=== PATIENT | female | born 1965 | race African-American/Black ===

== ENCOUNTER 2017-06-22 19:02 | Emergency (ER) | payer BC ==
[2017-06-22 19:06] VITALS: TEMP 98.6; BMI 32.2
--- NOTE | 2017-06-22 19:37 | PDOC ---
History of Present Illness - General Chief Complaint: Edema Stated Complaint: EDEMA Time Seen by Provider: 06/22/17 19:34 - History of Present Illness Initial Comments: 06/22/17 19:37 52 yo F with h/o HTN, and RA who presents with RLE pain and swelling. Patient with progressive RLE popliteal and calf pain and swelling (03/31), aggravated with walking. Denies color or skin change, warmth, sensory change, of involved ext. Pain control attempted with OTC Beng[place].Denies CP, palpitations, cough, SOB , hemoptysis, F/C, lightheadedness. Denies h/o CHF, DVT/PE, malignancy,or hypercoagulable disorder. Denies recent trauma, surgery, immobilization, or prolonged trips within past 6 months. Denies tobacco use. Past History - Past Medical History Allergies/Adverse Reactions: Allergies Allergy/AdvReac Type Severity Reaction Status Date / Time Penicillins Allergy Mild Rash Verified 06/22/17 19:06 Home Medications: Ambulatory Orders Amlodipine Besylate [Norvasc -] 5 mg PO DAILY 06/22/17 Ibuprofen [Motrin -] 600 mg PO TID PRN 06/22/17 COPD: No HTN: Yes - Suicide/Smoking/Psychosocial Hx Smoking History: Never smoked Hx Alcohol Use: No Drug/Substance Use Hx: No Substance Use Type: None Review of Systems - Review of Systems Comments:: 06/22/17 19:36 GENERAL/CONSTITUTIONAL: No fever or chills. No weakness. HEAD, EYES, EARS, NOSE AND THROAT: No change in vision. No ear pain or discharge. No sore throat.- CARDIOVASCULAR: No chest pain or shortness of breath RESPIRATORY: No cough, wheezing, or hemoptysis. GASTROINTESTINAL: No nausea, vomiting, diarrhea or constipation. GENITOURINARY: No dysuria, frequency, or change in urination. MUSCULOSKELETAL:+ RLE swelling and pain. No neck or back pain. SKIN: No rash NEUROLOGIC: No headache, vertigo, loss of consciousness, or change in strength/ sensation. ENDOCRINE: No increased thirst. No abnormal weight change HEMATOLOGIC/LYMPHATIC: No anemia, easy bleeding, or history of blood clots. ALLERGIC/IMMUNOLOGIC: No hives or skin allergy. *Physical Exam - Vital Signs Last Vital Signs Temp Pulse Resp BP Pulse Ox 98.6 F 80 16 153/84 98 06/22/17 19:04 06/22/17 19:04 06/22/17 19:04 06/22/17 19:04 06/22/17 19:04 - Physical Exam Comments: 06/22/17 19:36 GENERAL: Awake, alert, and fully oriented, in no acute distress HEAD: No signs of trauma, normocephalic, atraumatic EYES: PERRLA, EOMI, sclera anicteric, conjunctiva clear ENT: Hearing grossly normal, nares patent, oropharynx clear without exudates. Moist mucosa NECK: Normal ROM, no JVD, or masses LUNGS: No distress, speaks full sentences, clear to auscultation bilaterally HEART: Regular rate and rhythm, normal S1 and S2, no murmurs, rubs or gallops, peripheral pulses normal and equal bilaterally. EXTREMITIES : + RLE circumferential, nonpitting swelling >3 cm compared to left calf muscle. + Popliteal and calf ttp. Absent blue or white color change. Absent warmth, erythema, or induration overlying skin. + Right sided effusion in popliteal fossa.Palpable and symmetric perpheral PT pulses. Normal range of motion, No clubbing or cyanosis. NEUROLOGICAL: Cranial nerves II through XII grossly intact. Normal speech, normal gait, no focal sensorimotor deficits SKIN: Warm, Dry, normal turgor, no rashes or lesions noted. ]\ ED Treatment Course - RADIOLOGY Radiograph Interpretation: 06/22/17 21:08 Francine Soto Name: [facility] DEPARTMENT OF RADIOLOGY Phys: Darion Mabry RESIDENT : 1965 Age: 52 Sex: F [facility] Acct: [id number] Loc: [address] Exam Date: 06/22/17 Status: [facility] [place] [id number] Unit Number: [id number] EXAM#: TYPE/EXAM: RESULT: [id number] US/DUPLEX VASCUL US-1 LEG Indication: Right lower extremity pain and swelling. Technique: Real-time grayscale, color Doppler and spectral Doppler sonogram of the deep veins in the right and left lower extremities was performed by the technologist utilizing compression and augmentation maneuvers. The common femoral vein including its junction with the greater saphenous vein, the femoral, profunda femoral, popliteal and posterior tibial veins were interrogated in the right lower extremity. Images are submitted for review. Comparison: None available. Findings: There is no evidence evidence of deep vein thrombosis in the right lower extremity. The interrogated veins, as listed above, demonstrate compressibility and flow related Doppler signal. There is a 5.1 x 1.2 x 2.3 cm hypoechoic lesion in the right popliteal fossa, all likely a Bai's cyst. Impression: No evidence of right lower extremity deep vein thrombosis, as above. A 5.1 x 2.3 cm lesion in the right popliteal fossa, likely a Bai's cyst Reported By: Chrissy Hannon DO 06/22/172057 Darion Mabry Technologist: Ewa Burns Transcribed Date/Time : 06/22/172057 Tetryl Wringer Operator: Chrissy Hannon DO Printed Date/Time: By: Medical Decision Making - Medical Decision Making 06/22/17 20:11 52 yo F with h/o HTN, and RA who presents with with progressive RLE popliteal and calf pain and swelling (03/31), aggravated with walking. Denies color or skin change, warmth, sensory change, of involved ext. Denies CP, palpitations, cough, SOB, hemoptysis, F/C, lightheadedness. Denies h/o CHF, DVT/PE, malignancy ,or hypercoagulable disorder. Denies recent trauma, surgery, immobilization, or prolonged trips within past 6 months. Denies tobacco use. Hemodynamically stable with + RLE circumferential, nonpitting swelling >3 cm ( vs. left leg). + R sided popliteal and calf ttp. Absent blue or white color change. Absent warmth , erythema, or induration overlying skin. + Right sided palpable effusion in popliteal fossa. Palpable and symmetric peripheral PT pulses. Normal range of motion, No clubbing or cyanosis. Patient presentation concerning for RLE DVT. Mod- High risk weils criteria. Absent signs of massive iliofemoral occlusion, with no evidence phlegmasia. Absent physical exam or history findings to suggest PE. No evidence of overlying cellulitis. Posterior knee effusion in setting of RA most likely popliteal/bai cyst. Will obtain ultrasound imaging. ED Course: RLE U/S: 06/22/17 21:08 RLE U/S: No evidence of right lower extremity deep vein thrombosis, as above. A 5.1 x 2.3 cm lesion in the right popliteal fossa, likely a Bai's cyst Right Knee RAD: No acute pathology on preliminary read. 06/22/17 21:13 Patient stable and ready for d/c with return precautions. *DC/Admit/Observation/Transfer Diagnosis at time of Disposition: Bakers cyst Qualifiers: Laterality: right Qualified Code(s): M71.21 - Synovial cyst of popliteal space [Bai], right knee - Discharge Dispostion Disposition: HOME Condition at time of disposition: Stable Admit: No - Referrals Referrals: Jarrett Maurice [Primary Care Provider] - Edward Vazquez MD [Staff Physician] - - Patient Instructions Printed Discharge Instructions: DI for Bai's Cyst Additional Instructions: Please return to the emergency department with any new or worsening symptoms or concerns. Please return to the emergency department with any new or worsening symptoms. Can continue to take NSAIDS/Ibuprofen 600 mg 4 times a day. - Post Discharge Activity - Attestations Physician Attestion: 06/22/17 21:11 I attest to the information provided in this note.
--- NOTE | 2017-06-22 20:58 | PDOC ---
Attending Attestation - HPI HPI: 06/22/17 21:52 The patient is a 52 year old femal with a past medical history of hypertension, and Rhuematoid athritis who presents with RLE pain and swelling. Patient with progressive RLE popliteal and calf pain and swelling (03/31), aggravated with walking. She denies fever, cough, chills, and chest congestion. - Physicial Exam PE: 06/22/17 21:53 GENERAL: Awake, alert, and fully oriented, in no acute distress HEAD: No signs of trauma EYES: PERRLA, EOMI, sclera anicteric, conjunctiva clear ENT: Auricles normal inspection, hearing grossly normal, nares patent, oropharynx clear without exudates. Moist mucosa NECK: Normal ROM, supple, no lymphadenopathy, JVD, or masses LUNGS: Breath sounds equal, clear to auscultation bilaterally. No wheezes, and no crackles HEART: Regular rate and rhythm, normal S1 and S2, no murmurs, rubs or gallops ABDOMEN: Soft, nontender, normoactive bowel sounds. No guarding, no rebound. No masses EXTREMITIES: (+) synovial fluid bulge at anterior aspect of knee, no calf tenderness. Normal range of motion. No clubbing or cyanosis. No cords, erythema , or tenderness NEUROLOGICAL: Cranial nerves II through XII grossly intact. Normal speech, normal gait SKIN: Warm, Dry, normal turgor, no rashes or lesions noted. - Medical Decision Making 06/22/17 21:55 Documentation prepared by Don Schmid, acting as medical education coordinator for Susan Abdi DO. <Don Schmid - Last Filed: 06/22/17 21:52> - Resident Resident Name: Darion Mabry - ED Attending Attestation I have performed the following: I have examined & evaluated the patient, The case was reviewed & discussed with the resident, I agree w/resident's findings & plan, Exceptions are as noted - Medical Decision Making 06/22/17 20:58 I, Dr. Susan Abdi DO, attest that this document has been prepared under my direction and personally reviewed by me in its entirety. I further attest, that it accurately reflects all work, treatment, procedures and medical decision -making performed by me. 06/22/17 22:14 a/p: 52yo female with R posterior knee pain -no hx of trauma soft tissue bulging to posterior knee no leg swelling limited ROM secondary to pain pain since march will check xray and ultrasound dvt vs bakers cyst 06/22/17 22:14 pt with bakers cyst on ultrasound stable for d/c to home xray reviewed, no acute findings knee wrapped with an philip wrap will give ortho followup <Susan Abdi - Last Filed: 06/22/17 22:15>
[2017-06-22] MEDS ORDERED: IBUPROFEN 600 MG TABLET (FP) PO ONE ×2 (21:54→22:02)
[2017-06-22 22:24] VITALS: BP 132/68; PULSE 78
== END 2017-06-22 22:29 | disposition home or self-care (01) ==
LOC: JERFT 19:02
DX: M71.21 Synovial cyst of popliteal space [Baker], right knee (principal); I10 Essential (primary) hypertension; M62.82 Rhabdomyolysis
CPT/HCPCS: 73560-TC-RT-FY; 93971-TC; 99282-25

== ENCOUNTER 2018-03-09 14:18 | Emergency (ER) | payer BC ==
--- NOTE | 2018-03-09 14:50 | PDOC ---
Rapid Medical Evaluation Time Seen by Provider: 03/09/18 14:46 Medical Evaluation: Allergies Allergy/AdvReac Type Severity Reaction Status Date / Time Penicillins Allergy Mild Rash Verified 06/22/17 19:06 03/09/18 14:47 Pt presents to the ED for L rib pain since Monday night. Pt states on Monday she bent over to pick something up and felt a spasm. States that the pain is worse with movement and deep breaths. Exam: RRR, CTAB, TTP along the L 8th rib Orders: Nothing Pt to proceed to ED for further evaluation. Discharge Disposition - Diagnosis Rib pain on left side - Referrals - Patient Instructions - Post Discharge Activity
[2018-03-09 14:52] VITALS: BP 156/86; PULSE 81; TEMP 97.7; BMI 32.2
[2018-03-09] MEDS ORDERED: KETOROLAC TROMETHAMINE 60 MG/2 ML VIAL IM ONE (15:41)
[2018-03-09] MEDS ORDERED: KETOROLAC TROMETHAMINE 60 MG/2 ML VIAL ONE (15:48)
--- NOTE | 2018-03-09 15:48 | PDOC ---
History of Present Illness - General Stated Complaint: RT SIDE PAIN Time Seen by Provider: 03/09/18 14:46 History Source: Patient Exam Limitations: No Limitations - History of Present Illness Initial Comments: Patient came with complaints of LEFT lower thorax and upper back 2 days. States did some heavy lifting a few days ago and is used ibuprofen with minimal resolved. Denies numbness or tingling to hands or feet, denies fever or chest pain/palpitations. Thinks is a muscle strain. 03/10/18 17:43 Occurred: reports: yesterday, last week Severity: reports: mild, moderate Pain Location: reports: back, chest Modifying Factors: improves with: None Loss of Consciousness: no loss of consciousness Associated Symptoms (Fall): denies symptoms Past History - Travel Traveled outside of the country in the last 30 days: No Close contact w/someone who was outside of country & ill: No - Past Medical History Allergies/Adverse Reactions: Allergies Allergy/AdvReac Type Severity Reaction Status Date / Time Penicillins Allergy Mild Rash Verified 03/09/18 14:47 Home Medications: Ambulatory Orders Amlodipine Besylate [Norvasc -] 5 mg PO DAILY 06/22/17 Ibuprofen [Motrin -] 600 mg PO TID PRN 06/22/17 Cyclobenzaprine HCl 10 mg PO Q8H PRN #14 tablet 03/09/18 Diclofenac Sodium [Voltaren] 100 gm TP DAILY PRN 03/09/18 Naproxen [Naprosyn -] 500 mg PO BID #30 tablet 03/09/18 Simvastatin [Zocor -] 20 mg PO HS 03/09/18 metFORMIN HCL [Metformin HCl] 500 mg PO DAILY 03/09/18 COPD: No HTN: Yes - Suicide/Smoking/Psychosocial Hx Smoking History: Never smoked Hx Alcohol Use: No Drug/Substance Use Hx: No Substance Use Type: None Review of Systems - Review of Systems Able to Perform ROS?: Yes Is the patient limited Ghanaian proficient: Yes Constitutional: Yes: Symptoms Reported, See HPI. No: Fever, Loss of Appetite, Malaise HEENTM: Yes: See HPI. No: Symptoms Reported, Throat Swelling Respiratory: Yes: See HPI. No: Symptoms reported Musculoskeletal: Yes: Symptoms Reported, See HPI, Back Pain, Muscle Pain Integumentary: Yes: See HPI. No: Symptoms Reported Neurological: Yes: Symptoms reported All Other Systems: Reviewed and Negative *Physical Exam - Vital Signs Last Vital Signs Temp Pulse Resp BP Pulse Ox 97.7 F 81 18 156/86 99 03/09/18 14:50 03/09/18 14:50 03/09/18 14:50 03/09/18 14:50 03/09/18 14:50 - Physical Exam General Appearance: Yes: Nourished, Appropriately Dressed HEENT: positive: KING, TMs Normal Neck: positive: Supple. negative: Tender Respiratory/Chest: positive: Lungs Clear, Normal Breath Sounds Gastrointestinal/Abdominal: positive: Soft Musculoskeletal: positive: Muscle Spasm (tenderness and spasm palpated with movement at the left lower thorax and upper waistline.. Has no C-spine tenderness, no rashes/ lesions) Extremity: positive: Normal Capillary Refill, Normal Range of Motion Integumentary: positive: Normal Color, Dry, Warm. negative: Rash Progress Note - Progress Note Progress Note: Back spasm, we'll treat with NSAIDs and cyclobenzaprine *DC/Admit/Observation/Transfer Diagnosis at time of Disposition: Low back pain Qualifiers: Chronicity: acute Back pain laterality: left Sciatica presence: without sciatica Qualified Code(s): M54.5 - Low back pain - Discharge Dispostion Disposition: HOME Condition at time of disposition: Stable Decision to Admit order: No - Prescriptions Prescriptions: Cyclobenzaprine HCl 10 mg PO Q8H PRN #14 tablet PRN Reason: spasm Naproxen [Naprosyn -] 500 mg PO BID #30 tablet - Referrals Referrals: Jarrett Maurice [Primary Care Provider] - - Patient Instructions Printed Discharge Instructions: DI for Muscle Strain Additional Instructions: Rest, no heavy lifting or exercise until pain is resolved Hot soaks to neck and low back as often as possible/hot showers or Jacuzzis No massage or therapy until spasm is gone Continue Naprosyn 500 mg tablet, 1 tablet every 12 hours for the next 3 days then as needed for pain and swelling Cyclobenzaprine 1-10mg every 8 hours as needed for spasm If not significant improvement within 24 hours with medication and rest regime, followup with private physician for change in medications and /or therapy. - Post Discharge Activity Forms/Work/School Notes: Back to Work
== END 2018-03-09 16:09 | disposition home or self-care (01) ==
LOC: JERFT 14:18
PROC: 3E0233Z Introduction of Anti-inflammatory into Muscle, Percutaneous Approach (ICD-10-PCS; principal; 2018-03-09)
DX: R07.81 Pleurodynia (principal); I10 Essential (primary) hypertension
CPT/HCPCS: 99281-25

== ENCOUNTER 2018-11-02 18:49 | Emergency (ER) | payer BC ==
[2018-11-02 19:05] VITALS: BP 145/76; PULSE 96; TEMP 102; BMI 33.0
--- NOTE | 2018-11-02 19:06 | PDOC ---
Rapid Medical Evaluation Time Seen by Provider: 11/02/18 18:51 Medical Evaluation: Allergies Allergy/AdvReac Type Severity Reaction Status Date / Time Penicillins Allergy Mild Rash Verified 03/09/18 14:47 11/02/18 19:02 I have performed a brief in-person evaluation of this patient. The patient presents with a chief complaint of: Subjective fever w/ sore throat , BEDOLLA and dizziness x 5 days. H/o borderline DM, HTN, HLD but state she was taken of all meds several years ago Pertinent physical exam findings:T 102F, well cam and in NAD I have ordered the following:nothing The patient will proceed to the ED for further evaluation. Discharge Disposition - Diagnosis Fever Qualifiers: Fever type: unspecified Qualified Code(s): R50.9 - Fever, unspecified - Referrals - Patient Instructions - Post Discharge Activity
--- NOTE | 2018-11-02 19:48 | PDOC ---
History of Present Illness - General Chief Complaint: Respiratory Stated Complaint: FEVER/HEADACHE Time Seen by Provider: 11/02/18 18:51 History Source: Patient Exam Limitations: No Limitations - History of Present Illness Initial Comments: 11/02/18 19:57 Chief complaint: Fever and sore throat Patient is a 53-year-old female with no significant medical problems who states she's been sick with fever since Monday. States she's had some cough but not really coughing today, complaining of sore throat. Patient is able to eat and drink. Patient took one Advil at a time. Patient appears well. GENERAL/CONSTITUTIONAL: No fever, weakness. dizziness HEAD, EYES, EARS, NOSE AND THROAT: No change in vision. No ear pain or discharge. +sore throat. CARDIOVASCULAR: No chest pain RESPIRATORY: No shortness of breath, +cough GASTROINTESTINAL: No pain, nausea, vomiting, diarrhea or constipation GENITOURINARY: No dysuria MUSCULOSKELETAL: No neck or back pain SKIN: No rash NEUROLOGIC: No headache, vertigo, loss of consciousness, or loss of sensation. GENERAL: The patient is awake, alert, and fully oriented, in no acute distress. HEAD: Normal with no signs of trauma. EYES: Pupils equal, round and reactive to light, sclera anicteric, conjunctiva clear. ENT: pharynx: minimal erythema, no exudate, uvula midline NECK: supple CHEST: clear, nontender, rr ABD: soft, nontender BACK: no tenderness or signs of injury EXTREMITIES: Normal range of motion, no edema. NEUROLOGICAL: Normal speech, normal gait. SKIN: Warm, Dry Past History - Past Medical History Allergies/Adverse Reactions: Allergies Allergy/AdvReac Type Severity Reaction Status Date / Time Penicillins Allergy Mild Rash Verified 11/02/18 19:03 Home Medications: Ambulatory Orders Azithromycin [Zithromax -] 250 mg PO UTDICT #6 tab 11/02/18 COPD: No HTN: Yes - Suicide/Smoking/Psychosocial Hx Smoking History: Never smoked Hx Alcohol Use: No Drug/Substance Use Hx: No Substance Use Type: None *Physical Exam - Vital Signs Last Vital Signs Temp Pulse Resp BP Pulse Ox 102 F H 96 H 22 H 145/76 98 11/02/18 19:04 11/02/18 19:04 11/02/18 19:04 11/02/18 19:04 11/02/18 19:04 Medical Decision Making - Medical Decision Making 11/02/18 19:59 Healthy 53-year-old female with fever since Monday on and off, mostly at night, somewhat of a cough, but is not present today, worsening sore throat. Able to drink, appears well. Patient will get Motrin, strep, no indication for chest x- ray 11/02/18 20:30 Strep negative but given symptoms, an ALLERGY to penicillin, will give Z-Marquis to cover all respiratory bacterial issues. Patient will follow-up with her doctor on Monday, she has no shortness of breath and does not appeal acutely ill, 11/02/18 20:31 fs 89 *DC/Admit/Observation/Transfer Diagnosis at time of Disposition: Fever Qualifiers: Fever type: unspecified Qualified Code(s): R50.9 - Fever, unspecified Pharyngitis Qualifiers: Pharyngitis/tonsillitis etiology: unspecified etiology Qualified Code(s): J02.9 - Acute pharyngitis, unspecified - Discharge Dispostion Disposition: HOME Condition at time of disposition: Stable Decision to Admit order: No - Prescriptions Prescriptions: Azithromycin [Zithromax -] 250 mg PO UTDICT #6 tab - Referrals - Patient Instructions Additional Instructions: Drink 2-3 L of water daily Take Tylenol 650 mg every 4 hours or Motrin 600 mg every 6 hours for fever and pain Z-Marquis until finished as directed Return to the nearest ER if short of breath, unable to swallow or feeling sicker Followup with your doctor in one to 2 days - Post Discharge Activity Forms/Work/School Notes: Back to Work
[2018-11-02] MEDS ORDERED: IBUPROFEN 600 MG TABLET (FP) PO ONE ×2 (19:56→19:57)
== END 2018-11-02 20:43 | disposition home or self-care (01) ==
LOC: JERFT 18:49
DX: J06.9 Acute upper respiratory infection, unspecified (principal); I10 Essential (primary) hypertension; E11.9 Type 2 diabetes mellitus without complications
CPT/HCPCS: 82962; 87070; 87880; 99281-25

== ENCOUNTER 2022-02-25 07:28 | Day surgery (SDC) | payer BC, OTHER ==
[2022-02-21 14:05] VITALS: BMI 34.0
[2022-02-25] MEDS ORDERED: EPINEPHrine 1:1,000 1,000 MCG/ML ML ONE (08:46)
[2022-02-25] MEDS ORDERED: BUPIVACAINE HCL/PF 2.5 MG/ML - 30 ML VIAL IJ ONE (08:47)
[2022-02-25] MEDS ORDERED: PROPOFOL 20 ML ONE ×2 (09:04→09:35)
[2022-02-25] MEDS ORDERED: ceFAZolin SODIUM 1 GM VIAL ONE (09:28)
[2022-02-25] MEDS ORDERED: SUCCINYLCHOLINE CHLORIDE 200 MG/10 ML SYRINGE ONE (09:35)
[2022-02-25] MEDS ORDERED: ONDANSETRON 4 MG/2 ML VIAL ONE (09:50)
[2022-02-25] MEDS ORDERED: DEXAMETHASONE SOD PHOSPHATE 4 MG/1 ML VIAL ONE (09:50)
[2022-02-25] MEDS ORDERED: ACETAMINOPHEN 325 MG TABLET (FP) PO PRN (11:00)
[2022-02-25] MEDS ORDERED: LACTATED RINGERS SOLUTION 1,000 ML IV SCH (11:00)
[2022-02-25] MEDS ORDERED: oxyCODONE HCL 5 MG TABLET PO PRN (11:00)
[2022-02-25] MEDS ORDERED: ONDANSETRON 4 MG/2 ML VIAL IVPUSH PRN (11:00)
[2022-02-25 11:42] VITALS: RESP 16
[2022-02-25] MEDS ORDERED: oxyCODONE HCL 5 MG TABLET ONE (11:55)
[2022-02-25 12:32] VITALS: TEMP 97.6
[2022-02-25 14:20] VITALS: BP 129/62; PULSE 76
== END 2022-02-25 13:55 | disposition home or self-care (01) ==
LOC: FASU 07:28
PROVIDERS: ATTEND Orthopaedic Surgery
PROC: 0SBC4ZZ Excision of Right Knee Joint, Percutaneous Endoscopic Approach (ICD-10-PCS; 2022-02-25)
PROC: 0SBC4ZZ Excision of Right Knee Joint, Percutaneous Endoscopic Approach (ICD-10-PCS; principal; 2022-02-25 09:45)
DX: S83.241A Other tear of medial meniscus, current injury, right knee, initial encounter (principal); S83.281A Other tear of lateral meniscus, current injury, right knee, initial encounter; S83.8X1A Sprain of other specified parts of right knee, initial encounter; M65.861 Other synovitis and tenosynovitis, right lower leg; X58.XXXA Exposure to other specified factors, initial encounter; Y93.9 Activity, unspecified; Y92.9 Unspecified place or not applicable
CPT/HCPCS: 94760

== ENCOUNTER 2023-03-23 07:30 | Day surgery (SDC) | payer OTHER ==
[2023-03-20 12:40] VITALS: BMI 30.8
[2023-03-23] MEDS ORDERED: ACETAMINOPHEN INJECTION 100 ML IVPB ONE (09:16)
[2023-03-23] MEDS ORDERED: MIDAZOLAM HCL 2 MG/2 ML SINGLE DOSE VIAL ONE (09:16)
[2023-03-23] MEDS ORDERED: ROPIVACAINE HCL 0.5% 30ML VIAL ONE (09:16)
[2023-03-23] MEDS ORDERED: ONDANSETRON 4 MG/2 ML VIAL IVPUSH PRN (09:28)
[2023-03-23] MEDS ORDERED: oxyCODONE HCL 5 MG TABLET PO PRN (09:28)
[2023-03-23] MEDS ORDERED: LACTATED RINGERS SOLUTION 1,000 ML IV SCH (09:30)
[2023-03-23] MEDS ORDERED: ceFAZolin SODIUM 1 GM VIAL ONE ×2 (09:38)
[2023-03-23] MEDS ORDERED: PROPOFOL 20 ML ONE (09:39)
[2023-03-23] MEDS ORDERED: oxyCODONE HCL 5 MG TABLET ONE (11:40)
[2023-03-23 11:57] VITALS: RESP 16; TEMP 97.5
[2023-03-23 13:14] VITALS: BP 146/77; PULSE 84
== END 2023-03-23 13:05 | disposition home or self-care (01) ==
LOC: FASU 07:30
PROVIDERS: ATTEND Orthopaedic Surgery
PROC: 0RNK4ZZ Release Left Shoulder Joint, Percutaneous Endoscopic Approach (ICD-10-PCS; 2023-03-23)
PROC: 0RQK4ZZ Repair Left Shoulder Joint, Percutaneous Endoscopic Approach (ICD-10-PCS; 2023-03-23)
PROC: 0LM24ZZ Reattachment of Left Shoulder Tendon, Percutaneous Endoscopic Approach (ICD-10-PCS; principal; 2023-03-23 09:56)
DX: M75.122 Complete rotator cuff tear or rupture of left shoulder, not specified as traumatic (principal); M75.02 Adhesive capsulitis of left shoulder; M75.42 Impingement syndrome of left shoulder; S43.432A Superior glenoid labrum lesion of left shoulder, initial encounter; X58.XXXA Exposure to other specified factors, initial encounter; Y93.9 Activity, unspecified; Y92.9 Unspecified place or not applicable; Y99.9 Unspecified external cause status
CPT/HCPCS: 29823; 29824; 29826; 29827; C1713; 94760